=== PATIENT | female | born 1985 | race Caucasian/White ===

== ENCOUNTER 2016-12-30 18:41 | Emergency (ER) | payer BC ==
[2016-12-30] MEDS ORDERED: SODIUM CHLORIDE 0.9% 1,000 ML IV STA (19:41)
[2016-12-30] MEDS ORDERED: HYDROmorphone 1 MG/ML 1 ML SYRINGE IVP STA (19:41)
[2016-12-30] MEDS ORDERED: ONDANSETRON 4 MG/2 ML VIAL IVP STA (19:41)
--- NOTE | 2016-12-30 19:55 | ED ---
General Adult HPI - General Chief complaint: Back Pain/Injury Stated complaint: rt flank pain Time Seen by Provider: 12/30/16 19:30 Source: patient, RN notes reviewed Mode of arrival: ambulatory - History of Present Illness Initial comments: 31-year-old female presents to the emergency department with a chief complaint of right flank pain. Patient states it started ABOUT 3 PM. PATIENT STATES IT IS 10 OUT OF 10 PAIN. PATIENT STATES DUE TO THE INTENSITY OF THE PAIN SHE HAS HAD NAUSEA AND VOMITING WITH THIS. PATIENT STATES THAT THERE HASN'T BEEN ANY FEVER OR CHILLS. PATIENT STATES THAT SHE HAS NOT HAD ANY CHANGES IN BOWEL OR BLADDER HABITS. PATIENT STATES SHE DOES HAVE A HISTORY OF KIDNEY STONES IN THE PAST. PATIENT HAS HAD HER GALLBLADDER REMOVED. PATIENT STATES SHE WAS CONCERNED DUE TO THE CONTINUED DISCOMFORT SO SHE THOUGHT THAT SHE SHOULD BE EVALUATED.Patient denies any recent fever, chills, shortness of breath, chest pain, back pain, numbness or tingling, dysuria or hematuria, constipation or diarrhea, headaches or visual changes, or any other current symptoms. - Related Data Home Medications Medication Instructions Recorded Confirmed Omeprazole 20 mg PO DAILY PRN 12/30/16 12/30/16 Previous Rx's Medication Instructions Recorded Hydrocodone/Acetaminophen [[place] 1 each PO Q6HR PRN #20 tab 12/30/16 5-325] Ketorolac [Toradol] 10 mg PO Q6HR #20 tab 12/30/16 Ondansetron Odt [Zofran ODT] 4 mg PO Q8HR PRN #20 tab 12/30/16 Tamsulosin [Flomax] 0.4 mg PO DAILY #5 cap 12/30/16 Allergies Allergy/AdvReac Type Severity Reaction Status Date / Time No Known Allergies Allergy Verified 12/30/16 19:32 Review of Systems ROS Statement: Those systems with pertinent positive or pertinent negative responses have been documented in the HPI. ROS Other: All systems not noted in ROS Statement are negative. Past Medical History Past Medical History: No Reported History Additional Past Medical History / Comment(s): kidney stones History of Any Multi-Drug Resistant Organisms: None Reported Past Surgical History: Cholecystectomy Past Psychological History: No Psychological Hx Reported Smoking Status: Never smoker Past Alcohol Use History: Occasional Past Drug Use History: None Reported General Exam - General Exam Comments Initial Comments: General: The patient is awake and alert, in no distress, and does not appear acutely ill. Eye: Pupils are equal, round and reactive to light, extra-ocular movements are intact; there is normal conjunctiva bilaterally. No signs of icterus. Ears, nose, mouth and throat: There are moist mucous membranes. Neck: The neck is supple, there is no tenderness. Cardiovascular: There is a regular rate and rhythm. No murmur, rub or gallop is appreciated. Respiratory: Lungs are clear to auscultation, respirations are non-labored, breath sounds are equal. No wheezes, stridor, rales, or rhonchi. Gastrointestinal: Soft, non-distended, minimal right-sided tenderness of the abdomen diffusely abdomen without masses or organomegaly noted. There is no rebound or guarding present. Right sided CVA tenderness. Bowel sounds are unremarkable. Back: There is no tenderness to palpation in the midline. There is no obvious deformity. No rashes noted. Musculoskeletal: Normal ROM, no tenderness, There is no pedal edema. There is no calf tenderness or swelling. Sensation intact. Pulses equal bilaterally 2+. Neurological: CN II-XII intact, There are no obvious motor or sensory deficits. Coordination appears grossly intact. Speech is normal. Skin: Skin is warm and dry and no rashes or lesions are noted. Psychiatric: Cooperative, appropriate mood & affect, normal judgment. Course Vital Signs 12/30/16 12/30/16 19:07 20:24 Temperature 98.9 F 99.0 F Pulse Rate 108 H 88 Respiratory 16 18 Rate Blood Pressure 149/83 155/101 O2 Sat by Pulse 100 100 Oximetry Medical Decision Making - Medical Decision Making 31-year-old female presents emergency department chief complaint of right flank pain associated with nausea vomiting. Routine lab work is reviewed. Patient's CAT scan does not show any acute process. Due to the blood in the urine there is suspicion for possible non-radiopaque stone and or renal colic. This time we discussed we will start patient on medication for some. We discussed follow- up with urology and return parameters. Patient stated that she understood all questions have been answered. She will be discharged. - Lab Data Result diagrams: 12/30/16 20:00 12/30/16 20:00 Lab Results 12/30/16 12/30/16 12/30/16 Range/Units 19:45 19:45 20:00 WBC (3.8-10.6) k/uL RBC (3.80-5.40) m/uL Hgb (11.4-16.0) gm/dL Hct (34.0-46.0) % MCV (80.0-100.0) fL MCH (25.0-35.0) pg MCHC (31.0-37.0) g/dL RDW (11.5-15.5) % Plt Count (150-450) k/uL Neutrophils % % Lymphocytes % % Monocytes % % Eosinophils % % Basophils % % Neutrophils # (1.3-7.7) k/uL Lymphocytes # (1.0-4.8) k/uL Monocytes # (0-1.0) k/uL Eosinophils # (0-0.7) k/uL Basophils # (0-0.2) k/uL Hypochromasia Microcytosis Sodium 140 (137-145) mmol/L Potassium 3.8 (3.5-5.1) mmol/L Chloride 104 (98-107) mmol/L Carbon Dioxide 24 (22-30) mmol/L Anion Gap 12 mmol/L BUN 11 (7-17) mg/dL Creatinine 0.90 (0.52-1.04) mg/dL Est GFR (MDRD) Af Amer >60 (>60 ml/min/1.73 sqM) Est GFR (MDRD) Non-Af >60 (>60 ml/min/1.73 sqM) Glucose 124 H (74-99) mg/dL Plasma Lactic Acid Dam[place] (0.7-2.0) mmol/L Calcium 9.5 (8.4-10.2) mg/dL Total Bilirubin 0.5 (0.2-1.3) mg/dL AST 40 H (14-36) U/L ALT 61 H (9-52) U/L Alkaline Phosphatase 74 (38-126) U/L Total Protein 7.1 (6.3-8.2) g/dL Albumin 3.9 (3.5-5.0) g/dL Amylase 52 (30-110) U/L Lipase 106 (23-300) U/L Urine Color Yellow Urine Appearance Clear (Clear) Urine pH 6.5 (5.0-8.0) Ur Specific [place] 1.012 (1.001-1.035) Urine Protein Negative (Negative) Urine Glucose (UA) Negative (Negative) Urine Ketones Negative (Negative) Urine Blood Small H (Negative) Urine Nitrite Negative (Negative) Urine Bilirubin Negative (Negative) Urine Urobilinogen <2.0 (<2.0) mg/dL Ur Leukocyte Esterase Small H (Negative) Urine RBC 25 H (0-5) /hpf Urine WBC 4 (0-5) /hpf Ur Squamous Epith Cells 1 (0-4) /hpf Urine Bacteria Occasional H (None) /hpf Urine Mucus Rare H (None) /hpf Urine HCG, Qual Not Detected (Not Detectd) 12/30/16 12/30/16 Range/Units 20:00 20:00 WBC 9.6 (3.8-10.6) k/uL RBC 4.46 (3.80-5.40) m/uL Hgb 10.4 L (11.4-16.0) gm/dL Hct 33.5 L (34.0-46.0) % MCV 75.2 L (80.0-100.0) fL MCH 23.4 L (25.0-35.0) pg MCHC 31.1 (31.0-37.0) g/dL RDW 15.1 (11.5-15.5) % Plt Count 358 (150-450) k/uL Neutrophils % 67 % Lymphocytes % 23 % Monocytes % 6 % Eosinophils % 2 % Basophils % 1 % Neutrophils # 6.4 (1.3-7.7) k/uL Lymphocytes # 2.2 (1.0-4.8) k/uL Monocytes # 0.5 (0-1.0) k/uL Eosinophils # 0.2 (0-0.7) k/uL Basophils # 0.1 (0-0.2) k/uL Hypochromasia Moderate Microcytosis Slight Sodium (137-145) mmol/L Potassium (3.5-5.1) mmol/L Chloride (98-107) mmol/L Carbon Dioxide (22-30) mmol/L Anion Gap mmol/L BUN (7-17) mg/dL Creatinine (0.52-1.04) mg/dL Est GFR (MDRD) Af Amer (>60 ml/min/1.73 sqM) Est GFR (MDRD) Non-Af (>60 ml/min/1.73 sqM) Glucose (74-99) mg/dL Plasma Lactic Acid [place] 1.5 (0.7-2.0) mmol/L Calcium (8.4-10.2) mg/dL Total Bilirubin (0.2-1.3) mg/dL AST (14-36) U/L ALT (9-52) U/L Alkaline Phosphatase (38-126) U/L Total Protein (6.3-8.2) g/dL Albumin (3.5-5.0) g/dL Amylase (30-110) U/L Lipase (23-300) U/L Urine Color Urine Appearance (Clear) Urine pH (5.0-8.0) Ur Specific [place] (1.001-1.035) Urine Protein (Negative) Urine Glucose (UA) (Negative) Urine Ketones (Negative) Urine Blood (Negative) Urine Nitrite (Negative) Urine Bilirubin (Negative) Urine Urobilinogen (<2.0) mg/dL Ur Leukocyte Esterase (Negative) Urine RBC (0-5) /hpf Urine WBC (0-5) /hpf Ur Squamous Epith Cells (0-4) /hpf Urine Bacteria (None) /hpf Urine Mucus (None) /hpf Urine HCG, Qual (Not Detectd) - Radiology Data Radiology results: report reviewed, image reviewed Disposition Clinical Impression: Right flank pain Disposition: HOME SELF-CARE Condition: Stable Instructions: Flank Pain (ED) Additional Instructions: Please use medication as discussed. Please follow up with family doctor if symptoms have not improved over the next two days. Please return to the emergency room if your symptoms increase or worsen or for any other concerns. Prescriptions: Hydrocodone/Acetaminophen [[place] 5-325] 1 each PO Q6HR PRN #20 tab PRN Reason: Pain Ketorolac [Toradol] 10 mg PO Q6HR #20 tab Ondansetron Odt [Zofran ODT] 4 mg PO Q8HR PRN #20 tab PRN Reason: Nausea Tamsulosin [Flomax] 0.4 mg PO DAILY #5 cap Referrals: Nonstaff,Physician [Primary Care Provider] - 1-2 days Mert Herndon MD [STAFF PHYSICIAN] - 1-2 days Time of Disposition: 21:14
[2016-12-30 20:14] LABS: Basophils # (A) 0.1 k/uL (0-0.2); Basophils % (A) 1 %; CH 23.4; CHCM 31.3; Eosinophils # (A) 0.2 k/uL (0-0.7); Eosinophils % (A) 2 %; HCT 33.5 % (34.0-46.0); HDW 3.03; HGB 10.4 gm/dL (11.4-16.0); Hypochromasia Moderate; Luc # (Auto) 0.23; Luc % (Auto) 2; Lymphocytes # (A) 2.2 k/uL (1.0-4.8); Lymphocytes % (A) 23 %; MCH 23.4 pg (25.0-35.0); MCHC 31.1 g/dL (31.0-37.0); MCV 75.2 fL (80.0-100.0); Mean Platelet Volume 6.8; Microcytosis Slight; Monocytes # (A) 0.5 k/uL (0-1.0); Monocytes % (A) 6 %; Neutrophils # (A) 6.4 k/uL (1.3-7.7); Neutrophils % (A) 67 %; RBC 4.46 m/uL (3.80-5.40); RDW 15.1 % (11.5-15.5); WBC 9.6 k/uL (3.8-10.6); WBC (Perox) 9.74
[2016-12-30 20:17] LABS: Appearance,Urine Clear (Clear); Bacteria,Urine Occasional /hpf; Bilirubin,Urine Negative (Negative); Glucose,Urine (UA) Negative (Negative); Ketones,Urine Negative (Negative); Leukocyte Esterase,Urine Small (Negative); Mucus,Urine Rare /hpf; Nitrite,Urine Negative (Negative); PH, Urine 6.5 (5.0-8.0); Particle Count 1653; Protein,Urine Negative (Negative); RBC,Urine 25 /hpf (0-5); Specific Gravity,Urine 1.012 (1.001-1.035); Squamous Epithelial Cell,Urine 1 /hpf (0-4); UA Billing (MACRO vs. MICRO) MICRO; Urobilinogen,Urine <2.0 mg/dL (<2.0); WBC,Urine 4 /hpf (0-5)
[2016-12-30 20:24] LABS: ALT 61 U/L (9-52); AST 40 U/L (14-36); Alkaline Phosphatase 74 U/L (38-126); Amylase 52 U/L (30-110); Anion Gap 12 mmol/L; Blood Urea Nitrogen 11 mg/dL (7-17); Calcium 9.5 mg/dL (8.4-10.2); Carbon Dioxide 24 mmol/L (22-30); Chloride 104 mmol/L (98-107); Glucose 124 mg/dL (74-99); Non-African American GFR(MDRD) >60 (>60 ml/min/1.73 sqM); Potassium 3.8 mmol/L (3.5-5.1); Sodium 140 mmol/L (137-145); Total Bilirubin 0.5 mg/dL (0.2-1.3); Total Protein 7.1 g/dL (6.3-8.2)
[2016-12-30 20:27] VITALS: RESP 18
--- NOTE | 2016-12-30 21:05 | CT ---
EXAMINATION TYPE: CT abdomen pelvis wo con DATE OF EXAM: 12/30/2016 8:52 PM COMPARISON: 03/16/2016 HISTORY: PT STATES OF RIGHT FLANK PAIN. HX OF KIDNEY STONES. CT DLP: 1214.4 mGycm Automated exposure control for dose reduction was used. TECHNIQUE: Helical acquisition of images was performed from the lung bases through the pelvis. FINDINGS: Lung bases are clear. There is no pleural effusion. There is a 2 cm cyst in the superior right lobe of the liver. Bile ducts are not dilated. Cholecystec catherine is noted. Spleen and pancreas appear normal. There is no adrenal mass. Kidneys have normal size and contour. There is no evidence of a renal mass. I see no hydronephrosis. Ureters are not dilated. There is no ascites. There is no evidence of a pel cedrick mass. Bladder distends smoothly. There is probably a 2 cm cyst on the left ovary. Appendix appear s normal. I see no intestinal wall thickening. There are no dilated loops. I see no bony destructive process. IMPRESSION: NEGATIVE CT SCAN OF THE ABDOMEN AND PELVIS. NO EVIDENCE OF RENAL STONE OR OBSTRUCTION. NORMAL APPENDI X. NO ADVERSE CHANGE COMPARED TO OLD EXAM.
[2016-12-30 21:16] VITALS: BP 146/63; PULSE 78; TEMP 98.1
== END 2016-12-30 21:28 | disposition home or self-care (01) ==
LOC: EC 18:41
DX: R10.9 Unspecified abdominal pain (principal); R11.2 Nausea with vomiting, unspecified; Z87.442 Personal history of urinary calculi; Z90.49 Acquired absence of other specified parts of digestive tract
CPT/HCPCS: 36415; 80053; 82150; 83605; 83690; 85025; 81001; 81025; 87040; 87086; 74176; 99284; 96374; 96375; 96361; J2405; J1170

== ENCOUNTER 2018-05-15 20:28 | Emergency (ER) | payer BC ==
[2018-05-15 21:30] VITALS: BP 145/84; PULSE 96; RESP 16; TEMP 98.8
[2018-05-15 22:05] LABS: Appearance,Urine Clear (Clear); Bilirubin,Urine Negative (Negative); Blood,Urine Moderate (Negative); Color,Urine Yellow; Glucose,Urine (UA) Trace (Negative); Ketones,Urine Negative (Negative); Leukocyte Esterase,Urine Negative (Negative); Mucus,Urine Rare /hpf; Nitrite,Urine Negative (Negative); Protein,Urine Negative (Negative); RBC,Urine 6 /hpf (0-5); Specific Gravity,Urine 1.012 (1.001-1.035); Squamous Epithelial Cell,Urine 1 /hpf (0-4); Urobilinogen,Urine <2.0 mg/dL (<2.0); WBC,Urine 1 /hpf (0-5)
[2018-05-15 22:08] LABS: Anisocytosis Slight; Basophils % (A) 1 %; Eosinophils # (A) 0.1 k/uL (0-0.7); Eosinophils % (A) 2 %; HCT 29.4 % (34.0-46.0); HGB 8.6 gm/dL (11.4-16.0); Hypochromasia Marked; Lymphocytes # (A) 1.6 k/uL (1.0-4.8); Lymphocytes % (A) 20 %; MCH 19.2 pg (25.0-35.0); MCHC 29.4 g/dL (31.0-37.0); MCV 65.2 fL (80.0-100.0); Mean Platelet Volume 5.9; Microcytosis Marked; Monocytes # (A) 0.6 k/uL (0-1.0); Monocytes % (A) 8 %; Neutrophils # (A) 5.4 k/uL (1.3-7.7); Neutrophils % (A) 69 %; Platelet Count 477 k/uL (150-450); Poikilocytosis Slight; RBC 4.52 m/uL (3.80-5.40); RDW 16.4 % (11.5-15.5); WBC 7.9 k/uL (3.8-10.6)
[2018-05-15 22:19] LABS: ALT 40 U/L (9-52); AST 25 U/L (14-36); Albumin 4.3 g/dL (3.5-5.0); Alkaline Phosphatase 70 U/L (38-126); Amylase 54 U/L (30-110); Anion Gap 11 mmol/L; Blood Urea Nitrogen 12 mg/dL (7-17); Calcium 8.9 mg/dL (8.4-10.2); Carbon Dioxide 22 mmol/L (22-30); Chloride 107 mmol/L (98-107); Glucose 88 mg/dL (74-99); Lipase 72 U/L (23-300); Potassium 3.7 mmol/L (3.5-5.1); Sodium 140 mmol/L (137-145); Total Bilirubin 0.4 mg/dL (0.2-1.3); Total Protein 7.1 g/dL (6.3-8.2)
[2018-05-15] MEDS ORDERED: KETOROLAC 30 MG/ML 1 ML VIAL IVP STA (22:32)
[2018-05-15] MEDS ORDERED: ONDANSETRON 4 MG/2 ML VIAL IVP STA (22:32)
--- NOTE | 2018-05-15 23:07 | CT ---
EXAMINATION TYPE: CT abdomen pelvis wo con DATE OF EXAM: 05/15/2018 COMPARISON: 12/30/2016 HISTORY: anterior abdominal pain, nausea, vomiting, diarrhea. hx of femi CT DLP: 1138.1 mGycm Automated exposure control for dose reduction was used. TECHNIQUE: Helical acquisition of images was performed from the lung bases through the pelvis. FINDINGS: Lung bases are clear. There is no pleural effusion. There is 2 cm hypodensity in the superior right l obe of the liver that is probably a hemangioma. Spleen appears normal. There is no pancreatic mass. G allbladder is absent. Bile ducts are not dilated. There is no adrenal mass. Kidneys have normal size and contour. I see no hydronephrosis. Ureters are not dilated. There is no retroperitoneal adenopathy. There is no ascites. Appendix appears normal. Bladder distends smoothly. There is no pelvic mass. Uterus is retroverted. Lumbar spine is intact. IMPRESSION: NO EVIDENCE OF RENAL STONE OR OBSTRUCTION. NORMAL APPENDIX. NO SIGN OF ACUTE ABDOMEN AND PELVIS. NO A DVERSE CHANGE COMPARED TO OLD EXAM.
[2018-05-15] MEDS ORDERED: DICYCLOMINE 20 MG TAB PO STA (23:53)
--- NOTE | 2018-05-16 00:09 | ED ---
Abdominal Pain HPI - General Chief Complaint: Abdominal Pain Stated Complaint: Abd Pain Time Seen by Provider: 05/15/18 21:37 Source: patient Mode of arrival: ambulatory Limitations: no limitations - History of Present Illness Initial Comments: This patient is a 32-year-old woman who presents to be evaluated for pain to her abdomen. She states the symptoms started last night with some left flank pain that was aching in moderate. She also had the onset of diarrhea, having 2 loose bowel movements. She states that this morning she was having some onset of right lower quadrant pain that is aching, moderate intensity and constant. She notes that it's worse when she presses on that area. She hasn't been able to eat or drink much due to the nausea. MD Complaint: abdominal pain, flank pain Onset/Timin -: days(s) Location: RLQ, L flank Radiation: none Severity: moderate Quality: aching Consistency: constant Improves With: nothing Worsens With: other (Patient) Associated Symptoms: nausea, diarrhea - Related Data LMP (females 10-50): last week (Last menstrual period 2 weeks ago) Previous Rx's Medication Instructions Recorded Dicyclomine [Bentyl] 20 mg PO QID #15 tablet 05/16/18 Ferrous Sulfate [Iron] 325 mg PO DAILY #20 tablet 05/16/18 Allergies Allergy/AdvReac Type Severity Reaction Status Date / Time No Known Allergies Allergy Verified 05/15/18 21:29 Review of Systems ROS Statement: Those systems with pertinent positive or pertinent negative responses have been documented in the HPI. ROS Other: All systems not noted in ROS Statement are negative. Constitutional: Denies: fever, chills, weakness Respiratory: Denies: cough, dyspnea Cardiovascular: Denies: chest pain, palpitations, edema, syncope Gastrointestinal: Reports: abdominal pain, nausea, diarrhea. Denies: hematemesis, melena, hematochezia Genitourinary: Denies: dysuria, frequency, hematuria, discharge, abnormal menses Musculoskeletal: Denies: back pain Skin: Denies: rash Neurological: Denies: headache, weakness, numbness Past Medical History Past Medical History: No Reported History Additional Past Medical History / Comment(s): kidney stones History of Any Multi-Drug Resistant Organisms: None Reported Past Surgical History: Cholecystectomy Additional Past Surgical History / Comment(s): lithrotripsy, uretal stents Past Psychological History: No Psychological Hx Reported Smoking Status: Never smoker Past Alcohol Use History: Occasional Past Drug Use History: None Reported General Exam Limitations: no limitations General appearance: alert, in no apparent distress Head exam: Present: atraumatic, normocephalic Eye exam: Present: normal appearance. Absent: scleral icterus, conjunctival injection ENT exam: Present: normal oropharynx Respiratory exam: Present: normal lung sounds bilaterally. Absent: respiratory distress, wheezes, rales, rhonchi, stridor Cardiovascular Exam: Present: regular rate, normal rhythm, normal heart sounds. Absent: systolic murmur, diastolic murmur, rubs, gallop GI/Abdominal exam: Present: soft, tenderness (Ur is mild right lower quadrant tenderness without rebound or guarding). Absent: distended, guarding, rebound, rigid, mass, pulsatile mass Extremities exam: Present: normal inspection, normal capillary refill. Absent: pedal edema, calf tenderness Back exam: Present: normal inspection. Absent: CVA tenderness (R), CVA tenderness (L) Neurological exam: Present: alert Skin exam: Present: warm, dry, intact, normal color. Absent: rash Course Vital Signs 05/15/18 21:26 Temperature 98.8 F Pulse Rate 96 Respiratory 16 Rate Blood Pressure 145/84 O2 Sat by Pulse 100 Oximetry Medical Decision Making - Lab Data Result diagrams: 05/15/18 22:00 05/15/18 22:00 Lab Results 05/15/18 05/15/18 05/15/18 Range/Units 21:40 21:40 22:00 WBC (3.8-10.6) k/uL RBC (3.80-5.40) m/uL Hgb (11.4-16.0) gm/dL Hct (34.0-46.0) % MCV (80.0-100.0) fL MCH (25.0-35.0) pg MCHC (31.0-37.0) g/dL RDW (11.5-15.5) % Plt Count (150-450) k/uL Neutrophils % % Lymphocytes % % Monocytes % % Eosinophils % % Basophils % % Neutrophils # (1.3-7.7) k/uL Lymphocytes # (1.0-4.8) k/uL Monocytes # (0-1.0) k/uL Eosinophils # (0-0.7) k/uL Basophils # (0-0.2) k/uL Hypochromasia Poikilocytosis Anisocytosis Microcytosis Sodium 140 (137-145) mmol/L Potassium 3.7 (3.5-5.1) mmol/L Chloride 107 (98-107) mmol/L Carbon Dioxide 22 (22-30) mmol/L Anion Gap 11 mmol/L BUN 12 (7-17) mg/dL Creatinine 0.74 (0.52-1.04) mg/dL Est GFR (CKD-EPI)AfAm >90 (>60 ml/min/1.73 sqM) Est GFR (CKD-EPI)NonAf >90 (>60 ml/min/1.73 sqM) Glucose 88 (74-99) mg/dL Calcium 8.9 (8.4-10.2) mg/dL Total Bilirubin 0.4 (0.2-1.3) mg/dL AST 25 (14-36) U/L ALT 40 (9-52) U/L Alkaline Phosphatase 70 (38-126) U/L Total Protein 7.1 (6.3-8.2) g/dL Albumin 4.3 (3.5-5.0) g/dL Amylase 54 (30-110) U/L Lipase 72 (23-300) U/L Urine Color Yellow Urine Appearance Clear (Clear) Urine pH 6.0 (5.0-8.0) Ur Specific [place] 1.012 (1.001-1.035) Urine Protein Negative (Negative) Urine Glucose (UA) Trace H (Negative) Urine Ketones Negative (Negative) Urine Blood Moderate H (Negative) Urine Nitrite Negative (Negative) Urine Bilirubin Negative (Negative) Urine Urobilinogen <2.0 (<2.0) mg/dL Ur Leukocyte Esterase Negative (Negative) Urine RBC 6 H (0-5) /hpf Urine WBC 1 (0-5) /hpf Ur Squamous Epith Cells 1 (0-4) /hpf Urine Mucus Rare H (None) /hpf Urine HCG, Qual Not Detected (Not Detectd) 05/15/18 Range/Units 22:00 WBC 7.9 (3.8-10.6) k/uL RBC 4.52 (3.80-5.40) m/uL Hgb 8.6 L (11.4-16.0) gm/dL Hct 29.4 L (34.0-46.0) % MCV 65.2 L (80.0-100.0) fL MCH 19.2 L (25.0-35.0) pg MCHC 29.4 L (31.0-37.0) g/dL RDW 16.4 H (11.5-15.5) % Plt Count 477 H (150-450) k/uL Neutrophils % 69 % Lymphocytes % 20 % Monocytes % 8 % Eosinophils % 2 % Basophils % 1 % Neutrophils # 5.4 (1.3-7.7) k/uL Lymphocytes # 1.6 (1.0-4.8) k/uL Monocytes # 0.6 (0-1.0) k/uL Eosinophils # 0.1 (0-0.7) k/uL Basophils # 0.0 (0-0.2) k/uL Hypochromasia Marked Poikilocytosis Slight Anisocytosis Slight Microcytosis Marked Sodium (137-145) mmol/L Potassium (3.5-5.1) mmol/L Chloride (98-107) mmol/L Carbon Dioxide (22-30) mmol/L Anion Gap mmol/L BUN (7-17) mg/dL Creatinine (0.52-1.04) mg/dL Est GFR (CKD-EPI)AfAm (>60 ml/min/1.73 sqM) Est GFR (CKD-EPI)NonAf (>60 ml/min/1.73 sqM) Glucose (74-99) mg/dL Calcium (8.4-10.2) mg/dL Total Bilirubin (0.2-1.3) mg/dL AST (14-36) U/L ALT (9-52) U/L Alkaline Phosphatase (38-126) U/L Total Protein (6.3-8.2) g/dL Albumin (3.5-5.0) g/dL Amylase (30-110) U/L Lipase (23-300) U/L Urine Color Urine Appearance (Clear) Urine pH (5.0-8.0) Ur Specific [place] (1.001-1.035) Urine Protein (Negative) Urine Glucose (UA) (Negative) Urine Ketones (Negative) Urine Blood (Negative) Urine Nitrite (Negative) Urine Bilirubin (Negative) Urine Urobilinogen (<2.0) mg/dL Ur Leukocyte Esterase (Negative) Urine RBC (0-5) /hpf Urine WBC (0-5) /hpf Ur Squamous Epith Cells (0-4) /hpf Urine Mucus (None) /hpf Urine HCG, Qual (Not Detectd) Disposition Clinical Impression: Abdominal pain, Anemia Disposition: HOME SELF-CARE Condition: Good Instructions: Abdominal Pain (ED), Anemia (ED) Prescriptions: Dicyclomine [Bentyl] 20 mg PO QID #15 tablet Ferrous Sulfate [Iron] 325 mg PO DAILY #20 tablet Is patient prescribed a controlled substance at d/c from ED?: No Referrals: Nonstaff,Physician [Primary Care Provider] - 1-2 days Nando Rod MD [REFERRING] - 1-2 days
--- NOTE | 2018-05-16 00:47 | US ---
EXAMINATION TYPE: US transvaginal DATE OF EXAM: 05/16/2018 COMPARISON: CT done 05/15/2018 CLINICAL HISTORY: Pain. RLQ pain TECHNIQUE: Transvaginal (TV). Date of LMP: 04/24/2018 EXAM MEASUREMENTS: Uterus: 8.6 x 4.6 x 5.9 cm Endometrial Stripe: 1.2 cm Right Ovary: 2.9 x 1.9 x 2.2 cm Left Ovary: 2.9 x 2.1 x 2.2 cm 1. Uterus: Anteverted wnl 2. Endometrium: wnl 3. Right Ovary: wnl 4. Left Ovary: wnl Spectral, color and waveform doppler imaging shows good arterial and venous flow within the ovaries ; there is no evidence for ovarian torsion. 5. Bilateral Adnexa: wnl 6. Posterior cul-de-sac: no free fluid IMPRESSION: No evidence of ovarian torsion. Normal uterus and endometrium.
== END 2018-05-16 02:02 | disposition home or self-care (01) ==
LOC: EC 20:28
DX: D64.9 Anemia, unspecified (principal); R10.31 Right lower quadrant pain; R19.7 Diarrhea, unspecified; R11.0 Nausea; Z87.442 Personal history of urinary calculi; Z90.49 Acquired absence of other specified parts of digestive tract; Z96.0 Presence of urogenital implants; Z98.890 Other specified postprocedural states
CPT/HCPCS: 36415; 80053; 82150; 83690; 85025; 81001; 81025; 93975; 76830; 74176; 99284; 96374; 96375; J2405; J1885

== ENCOUNTER 2021-04-02 06:15 | Day surgery (SDC) | payer BC ==
[2021-03-29 12:51] VITALS: BMI 32.5
--- NOTE | 2021-04-01 10:25 | P.HPOB ---
History of Present Illness H&P Date: 04/01/21 Chief Complaint: Menorrhagia and secondary anemia This patient is a pleasant 35 yr female who presented to me for evaluation of long standing menorrhagia and secondary anemia. She has had heavy, long menses for over 5 years. Initial Hgb on presentation was 7.3 and she had a history of iron infusions in the past. I referred her to hematology and have been able to increase her Hgb with another iron infusion, but now presents for endometrial ablation in attempts to help stop the source of her anemia. She has been intolerant of OCPs in the past and her terminologist partner has had a vasectomy. Ultrasound shows a normal size uterus with normal endometrial thickness of 8mm. Review of Systems Genitourinary: Reports as per HPI, Reports menorrhagia Menstruation: Reports as per HPI Past Medical History Past Medical History: GERD/Reflux Additional Past Medical History / Comment(s): hx mult kidney stones, anemia, heavy periods, History of Any Multi-Drug Resistant Organisms: None Reported Past Surgical History: Adenoidectomy, Cholecystectomy Additional Past Surgical History / Comment(s): mult lithrotripsy and stents, laproscopic surgery for endometriosis Past Anesthesia/Blood Transfusion Reactions: Motion Sickness Past Psychological History: No Psychological Hx Reported Smoking Status: Never smoker Past Alcohol Use History: None Reported Past Drug Use History: None Reported - Past Family History Mother Family Medical History: No Reported History Medications and Allergies Home Medications Medication Instructions Recorded Confirmed Type Iron Infusions 1 applicate IV DIRECTED 03/29/21 03/29/21 History Allergies Allergy/AdvReac Type Severity Reaction Status Date / Time No Known Allergies Allergy Verified 03/29/21 12:43 Exam - OBG Physical Exam Abdomen: bowel sounds normal, no diffuse tenderness, no bruit present, no guarding noted, no hepatomegaly, no splenomegaly, no mass Vulva: both: normal Vagina: normal moisture, no discharge Cervix: no lesion, no discharge Uterus: normal size, normal contour Adnexa: both: normal Results Ultrasound as above. Assessment and Plan Assessment: This is a pleasant 35 yr female with longstanding menorrhagia and severe secondary anemia. Plan is hysteroscopy, dilation/curretage and Novasure endometrial ablation. Abida and I have discussed this surgery and risks: in fection, bleeding, possible uterine perforation and/or thermal injury. She understands that she can never attempt . All of her questions were answered and a written consent obtained. (1) Menorrhagia Status: Acute Code(s): N92.0 - EXCESSIVE AND FREQUENT MENSTRUATION WITH REGULAR CYCLE SNOMED Code(s): 643477944 (2) Anemia Status: Acute Code(s): D64.9 - ANEMIA, UNSPECIFIED SNOMED Code(s): 850038255
[~2021-04-02 06:15] MED LIST: DEXAMETHASONE SOD PHOSPHATE 4 MG/ML 1 ML VIAL IV ONE; LACTATED RINGERS 1,000 ML IV SCH; ONDANSETRON 4 MG/2 ML VIAL IVP ONE; Pre Op ABX Message 1 EACH MISC MISCELLANE ONE
[2021-04-02] MEDS ORDERED: LACTATED RINGERS 1,000 ML IV ONE (06:32)
[2021-04-02] MEDS ORDERED: SUCCINYLCHOLINE CHLORIDE 100 MG/5 ML SYR IV ONE (07:20)
[2021-04-02] MEDS ORDERED: KETOROLAC 15 MG/ML 1 ML VIAL ONE (07:20)
[2021-04-02] MEDS ORDERED: fentaNYL (PF) 50 MCG/ML 2 ML AMP ONE ×2 (07:20→09:49)
[2021-04-02] MEDS ORDERED: LIDOCAINE 1% INJ 10MG/ML (20 ML MDV) ONE (07:20)
[2021-04-02] MEDS ORDERED: MIDAZOLAM 2 MG/2 ML VIAL ONE (07:20)
[2021-04-02] MEDS ORDERED: PROPOFOL 10 MG/ML 20 ML VIAL IV ONE (07:20)
[2021-04-02] MEDS: HYDROmorphone 0.5 MG/0.5 ML SYRINGE IVP PRN ×4 (07:58→08:39)
--- NOTE | 2021-04-02 07:59 | P.OP ---
Date of Procedure: 04/02/21 Preoperative Diagnosis: #1: Menorrhagia. #2: Secondary anemia Postoperative Diagnosis: Same Procedure(s) Performed: #1: Hysteroscopy. #2: Dilation and curettage. #3: NovaSure endometrial ablation Anesthesia: LESLEY Surgeon: Kodak Garcia Estimated Blood Loss (ml): 10 Urine output (ml): 30 Pathology: other (Uterine curettings) Condition: stable Disposition: PACU Indications for Procedure: Please see dictated H&P for intimate details of this patient's admission. Brief summary this pleasant 35-year-old 1 para 1 female with long-standing menorrhagia and secondary anemia. Patient presents for hysteroscopy with D&C and endometrial ablation for treatment. She does understand this procedure and risks including risks of infection, bleeding, possible uterine perforation, and/or thermal injury. All the patient's questions were answered and a written consent is obtained. Operative Findings: This patient had a normal appearing endometrial cavity Description of Procedure: This patient is taken to the operating room for she is laid in the supine position. She subsequent undergoes general endotracheal anesthesia without incident. With an adequate level of anesthesia she's placed in dorsal lithotomy position. She has a vaginal and perineal prep and drape. Examination under anesthesia shows a retroverted uterus of normal size. Weighted speculum was placed in the posterior vagina. The anterior lip of the cervix is grabbed with an Allis clamp. The cervix and uterus are gently sounded to 9 cm. Gentle dilation is then done to allow the hysteroscope easily into the uterine cavity. Hysteroscopy is performed with saline solution. Uterine cavity appears normal without evidence of polyps or fibroids. It is measured at a length of 6.0 cm. With this done the hysteroscope was removed. Cervix is dilated more to allow a small curette easily and the uterine cavity. A gentle but thorough 4 quadrant curettage is then done. This completed the NovaSure device is opened and set at a length of 6.0 cm. It is seated in place and opens up to a width of 4.7 cm. With this done it passes the cavity integrity test and then is enabled at 155 W settings for 61 seconds. This completed the NovaSure device is then removed. Appears to be intact. Hysteroscopy is performed again and the endometrial cavity appears to be ablated up to the endocervix. Excellent results are noted. With this done the Allis clamp and weighted speculum removed. All counts correct 3. There are no complications. Patient is awakened from anesthesia and taken to the recovery room in satisfactory condition.
[2021-04-02 08:06] VITALS: TEMP 96.8
[2021-04-02 08:49] VITALS: RESP 16
[2021-04-02] MEDS ORDERED: ONDANSETRON 4 MG/2 ML VIAL IVP ONE (09:17)
[2021-04-02] MEDS ORDERED: fentaNYL (PF) 50 MCG/ML 2 ML AMP IV ONE (09:54)
[2021-04-02] MEDS ORDERED: SCOPOLAMINE 1.5MG/72HR PATCH TRANSDERM ONE (10:06)
[2021-04-02] MEDS ORDERED: DEXAMETHASONE SOD PHOSPHATE 4 MG/ML 1 ML VIAL IV ONE (12:04)
[2021-04-02 12:05] VITALS: BP 141/79; PULSE 65
== END 2021-04-02 12:44 | disposition home or self-care (01) ==
LOC: OR 06:15
PROVIDERS: ATTEND Obstetrics & Gynecology
DX: N92.0 Excessive and frequent menstruation with regular cycle (principal); D64.9 Anemia, unspecified; K21.9 Gastro-esophageal reflux disease without esophagitis; Z87.442 Personal history of urinary calculi; Z90.89 Acquired absence of other organs; Z90.49 Acquired absence of other specified parts of digestive tract; Z96.0 Presence of urogenital implants; Z98.890 Other specified postprocedural states; Z79.899 Other long term (current) drug therapy
CPT/HCPCS: 81025; 88305; 58563; J2250; J1100; J2405; J2001; J3010; J1885; J0330; J2704; J1170

== ENCOUNTER 2021-06-18 12:01 | Emergency (ER) | payer BC ==
[2021-06-18 12:10] VITALS: TEMP 98.6
--- NOTE | 2021-06-18 12:52 | XR ---
EXAMINATION TYPE: XR ankle complete LT DATE OF EXAM: 06/18/2021 COMPARISON: NONE HISTORY: Pain TECHNIQUE: 3 views of the left ankle are submitted for evaluation. FINDINGS: There is no evidence for fracture or dislocation. Ankle mortise is intact. Soft tissues are within normal limits. IMPRESSION: 1. No evidence for acute fracture.
--- NOTE | 2021-06-18 13:29 | ED ---
General Adult HPI - General Chief complaint: Extremity Injury, Lower Stated complaint: L Foot Pain Time Seen by Provider: 06/18/21 12:12 Source: patient, RN notes reviewed Mode of arrival: wheelchair Limitations: no limitations - History of Present Illness Initial comments: 35-year-old female with a past medical history of GERD presents to the emergency room for a chief complaint of left foot pain. Patient reports 2 days ago she threw her 's surprise birthday constitution party. She states that she was on her feet all day. The next day her left foot was hurting. Today she was shopping at [employer] and was painful to walk to the store. Patient is concerned because she is flying to [place] in 2 days and wants to make sure it is not broken. Patient denies noticing any injuries aside from just having been on her feet outside all day.Patient has no other complaints at this time including shortness of breath, chest pain, abdominal pain, nausea or vomiting, headache, or visual changes. - Related Data Home Medications Medication Instructions Recorded Confirmed Iron Infusions 1 applicate IV DIRECTED 03/29/21 03/29/21 Previous Rx's Medication Instructions Recorded Ibuprofen [Motrin] 600 mg PO Q6HR PRN #30 tab 04/02/21 Allergies Allergy/AdvReac Type Severity Reaction Status Date / Time No Known Allergies Allergy Verified 06/18/21 12:10 Review of Systems ROS Statement: Those systems with pertinent positive or pertinent negative responses have been documented in the HPI. ROS Other: All systems not noted in ROS Statement are negative. Past Medical History Past Medical History: GERD/Reflux Additional Past Medical History / Comment(s): hx mult kidney stones, anemia, heavy periods, History of Any Multi-Drug Resistant Organisms: None Reported Past Surgical History: Adenoidectomy, Cholecystectomy Additional Past Surgical History / Comment(s): mult lithrotripsy and stents, laproscopic surgery for endometriosis Past Anesthesia/Blood Transfusion Reactions: Motion Sickness Past Psychological History: No Psychological Hx Reported Smoking Status: Never smoker Past Alcohol Use History: None Reported Past Drug Use History: None Reported - Past Family History Mother Family Medical History: No Reported History General Exam Limitations: no limitations General appearance: alert, in no apparent distress Head exam: Present: atraumatic Eye exam: Present: normal appearance, PERRL, EOMI. Absent: scleral icterus, conjunctival injection ENT exam: Present: normal exam, mucous membranes moist Neck exam: Present: normal inspection, full ROM. Absent: tenderness Respiratory exam: Present: normal lung sounds bilaterally. Absent: respiratory distress, wheezes Cardiovascular Exam: Present: regular rate, normal rhythm, normal heart sounds Extremities exam: Present: full ROM (Full range of motion of the left ankle as well as left foot), tenderness (Tenderness to the lateral dorsal aspect of the left foot. No lateral malleoli tenderness.), normal capillary refill (Capillary refill less than 2 seconds, DP pulse 2+ left lower extremity), other (Sensation intact left lower extremity). Absent: joint swelling (No swelling edema or erythema noted.) Neurological exam: Present: alert Course Vital Signs 06/18/21 12:07 Temperature 98.6 F Pulse Rate 68 Respiratory 20 Rate Blood Pressure 149/92 O2 Sat by Pulse 99 Oximetry Medical Decision Making - Medical Decision Making Vitals are stable. HPI and physical exam as documented. There is no evidence of infection. There is no erythema or edema. There is some tenderness to the lateral aspect of the left foot X-ray of the foot and ankle are negative for acute fracture. Patient was placed in a fracture shoe and crutches for comfort. She is to follow-up. She'll return here for any worsening symptoms. Disposition Clinical Impression: Foot pain, left Disposition: HOME SELF-CARE Condition: Good Instructions (If sedation given, give patient instructions): Foot Sprain (ED) Additional Instructions: Please take Motrin and Tylenol pain. Use fracture shoe and crutches. Follow-up with your doctor. Follow-up with orthopedics as needed. Return to the emergency room for any worsening symptoms. Is patient prescribed a controlled substance at d/c from ED?: No Referrals: Nonstaff,Physician [Primary Care Provider] - 1-2 days Isiah Solis MD [Medical Doctor] - 1-2 days Time of Disposition: 14:03
--- NOTE | 2021-06-18 13:34 | XR ---
EXAMINATION TYPE: XR foot complete LT DATE OF EXAM: 06/18/2021 CLINICAL HISTORY: pain TECHNIQUE: Frontal, lateral and oblique images of the left foot are obtained. COMPARISON: None. FINDINGS: There is no acute fracture/dislocation evident. The joint spaces appear within normal calle its. The overlying soft tissue appears unremarkable. IMPRESSION: There is no acute fracture or dislocation. ICD 10 NO FRACTURE, INITIAL EVALUATION
[2021-06-18 14:11] VITALS: BP 143/101; PULSE 84; RESP 18
== END 2021-06-18 14:11 | disposition home or self-care (01) ==
LOC: EC 12:01
DX: M79.672 Pain in left foot (principal); K21.9 Gastro-esophageal reflux disease without esophagitis; Z87.442 Personal history of urinary calculi; Z79.1 Long term (current) use of non-steroidal anti-inflammatories (NSAID); Z90.49 Acquired absence of other specified parts of digestive tract
CPT/HCPCS: 99283

== ENCOUNTER 2021-07-11 14:05 | Emergency (ER) | payer BC ==
[2021-07-11 14:22] VITALS: BP 148/90; PULSE 79; RESP 20; TEMP 98.7
[2021-07-11] MEDS ORDERED: LIDOCAINE 1% INJ 10MG/ML (20 ML MDV) SQ ONE (14:33)
[2021-07-11] MEDS ORDERED: DIPH,PERTUS(ACELL)TETVAC-LF 0.5 ML VIAL IM ONE (14:33)
--- NOTE | 2021-07-11 15:35 | ED ---
Wound/Laceration HPI - General Chief Complaint: Wound/Laceration Stated Complaint: R foot laceration Time Seen by Provider: 07/11/21 14:29 Source: patient, RN notes reviewed Mode of arrival: wheelchair Limitations: no limitations - History of Present Illness Initial Comments: Patient is a 35-year-old female that presents to emergency department with a r ight foot laceration on the dorsal aspect on the medial aspect. She notes that she has nails in her bed from that her put their to hold it together. She notes that he was arresting she cut herself. She is unsure of her tetanus status. She notes that she can emergency room to get sutures and have the wound looked at. She denied any other issues or complaints. She was otherwise well-appearing 35 she'll female in no apparent distress or pain. She denied chest pendulous breath headache nausea vomiting diarrhea constipation fever fatigue chills weakness numbness tingling in her right great toe. - Related Data Previous Rx's Medication Instructions Recorded Cephalexin [Keflex] 500 mg PO Q6HR #40 cap 07/11/21 Allergies Allergy/AdvReac Type Severity Reaction Status Date / Time No Known Allergies Allergy Verified 07/11/21 14:19 Review of Systems ROS Statement: Those systems with pertinent positive or pertinent negative responses have been documented in the HPI. ROS Other: All systems not noted in ROS Statement are negative. Past Medical History Past Medical History: GERD/Reflux Additional Past Medical History / Comment(s): hx mult kidney stones, anemia, heavy periods, History of Any Multi-Drug Resistant Organisms: None Reported Past Surgical History: Adenoidectomy, Cholecystectomy Additional Past Surgical History / Comment(s): mult lithrotripsy and stents, laproscopic surgery for endometriosis Past Anesthesia/Blood Transfusion Reactions: Motion Sickness Past Psychological History: No Psychological Hx Reported Smoking Status: Never smoker Past Alcohol Use History: None Reported Past Drug Use History: None Reported - Past Family History Mother Family Medical History: No Reported History General Exam Limitations: no limitations General appearance: alert, in no apparent distress Head exam: Present: atraumatic, normocephalic, normal inspection Eye exam: Present: normal appearance, PERRL, EOMI. Absent: scleral icterus, conjunctival injection, periorbital swelling Neck exam: Present: normal inspection Respiratory exam: Present: normal lung sounds bilaterally. Absent: respiratory distress, wheezes, rales, rhonchi, stridor Cardiovascular Exam: Present: regular rate, normal rhythm, normal heart sounds. Absent: systolic murmur, diastolic murmur, rubs, gallop, clicks Extremities exam: Present: normal inspection, full ROM, normal capillary refill. Absent: tenderness, pedal edema, joint swelling, calf tenderness Neurological exam: Present: alert, oriented X3 Psychiatric exam: Present: normal affect, normal mood Skin exam: Present: warm, dry, intact, normal color. Absent: rash Expanded Type of lesion: Present: laceration (Medial dorsal aspect of right foot proximally great toe, minimal bleeding, margins well approximated.) Course Vital Signs 07/11/21 14:19 Temperature 98.7 F Pulse Rate 79 Respiratory 20 Rate Blood Pressure 148/90 O2 Sat by Pulse 97 Oximetry Procedures - Laceration Laceration #1 Consent Obtained: verbal consent Indication: laceration Site: foot (Dorsal medial aspect of right foot) Size (cm): 8 Description: linear Depth: simple, single layer Anesthetic Used: lidocaine 1% Anesthesia Technique: local infiltration Amount (mls): 8 Pre-repair: irrigated extensively Type of Sutures: nylon Size of Sutures: 4-0 Number of Sutures: 7 Technique: simple, interrupted Patient Tolerated Procedure: well, no complications Medical Decision Making - Medical Decision Making 35-year-old female with a right foot laceration. Tetanus vaccine, lidocaine ordered. Patient tolerated suturing well. Wound was cleaned prior to suturing. Case discussed with Dr. Chavez, patient can discharge home with follow-up to primary care. Can watch was sent to pharmacy. Disposition Clinical Impression: Laceration Disposition: HOME SELF-CARE Condition: Stable Instructions (If sedation given, give patient instructions): Laceration (ED), Care For Your Stitches (ED) Additional Instructions: Please return to the Emergency Department if symptoms worsen or any other concerns. Follow-up with primary care 1-2 days. Get antibiotics as prescribed until complete. Please return in 7-10 days to have sutures removed. Is patient prescribed a controlled substance at d/c from ED?: No Referrals: Nonstaff,Physician [Primary Care Provider] - 1-2 days Time of Disposition: 15:35
== END 2021-07-11 15:38 | disposition home or self-care (01) ==
LOC: EC 14:05
DX: S91.311A Laceration without foreign body, right foot, initial encounter (principal)
CPT/HCPCS: 90715; 99282; 90471; 12004; J2001